=== PATIENT | female | born 1990 | race African-American/Black ===

== ENCOUNTER 2021-12-16 22:52 | Emergency (ER) | payer MEDICAID ==
[~2021-12-16] VITALS: Ht 167.6 cm; Wt 70.3 kg
[2021-12-16 23:02] VITALS: BP 131/85
[2021-12-16] MEDS: ACETAMINOPHEN EXTRA STRENGTH 500 MG TAB PO ONE (23:48)
[2021-12-16] MEDS: ONDANSETRON 4 MG/2 ML VIAL IM ONE (23:56)
== END 2021-12-17 | disposition home or self-care (01) ==
LOC: MED 22:52
DX: S06.0X0A Concussion without loss of consciousness, initial encounter (principal); R42 Dizziness and giddiness; R11.2 Nausea with vomiting, unspecified; H53.8 Other visual disturbances; W18.2XXA Fall in (into) shower or empty bathtub, initial encounter; Y93.89 Activity, other specified; Y92.89 Other specified places as the place of occurrence of the external cause; Y99.8 Other external cause status
CPT/HCPCS: 96372; 99283; J2405